=== PATIENT | female | born 1985 | race Hispanic/Latino ===

== ENCOUNTER 2017-11-28 13:57 | Observation (INO) | payer MEDICAID | END 2017-11-28 15:54 | disposition home or self-care (01) | LOC: LDH 13:57 | DX: O24.419 Gestational diabetes mellitus in pregnancy, unspecified control (principal); Z90.49 Acquired absence of other specified parts of digestive tract; Z87.59 Personal history of other complications of pregnancy, childbirth and the puerperium; Z3A.30 30 weeks gestation of pregnancy | CPT/HCPCS: 59025; 76819; G0378 ×3 ==

== ENCOUNTER 2017-12-19 05:43 | Inpatient (IN) | payer MEDICAID ==
[2017-12-18 17:14] LABS: HEMATOCRIT 33.6 % (36-48); MEAN CORPUSCULAR HEMOGLOBIN 33.8 pg (27.0-33.0); MEAN CORPUSCULAR VOLUME 96.4 fL (79-99); NUCLEATED RED BLOOD CELLS 0.1 % (0.0-0.19); PLATELET COUNT (AUTO) 259 K/uL (130-400); RED BLOOD CELL COUNT(AUTO) 3.49 MIL/uL (4.00-5.50); RED CELL DISTRIBUTION WIDTH 13.4 % (11.0-15.5)
[~2017-12-19] VITALS: Ht 157.5 cm; Wt 94.3 kg
[2017-12-19] MEDS ORDERED: LACTATED RINGERS 1000ML 1,000 ML IV SCH (06:00)
[2017-12-19] MEDS ORDERED: CEFAZOLIN SODIUM 1 GM VIAL IVP PRN (06:00)
[2017-12-19] MEDS ORDERED: CALDOLOR 800MG+NS 250ML 250 ML IV PRN (06:00)
[2017-12-19 06:12] LABS: AMPHET/METH SCREEN,URINE NEGATIVE (NEGATIVE); BARBITURATE SCREEN, URINE NEGATIVE (NEGATIVE); BENZODIAZEPINES SCREEN,URINE NEGATIVE (NEGATIVE); CANNABINOID SCREEN,URINE NEGATIVE (NEGATIVE); COCAINE SCREEN,URINE NEGATIVE (NEGATIVE); OPIATE SCREEN,URINE NEGATIVE (NEGATIVE); PHENCYCLIDINE SCREEN,URINE NEGATIVE (NEGATIVE)
[2017-12-19] MEDS ORDERED: DURAMORPH PF1 MG/ML 10ML AMP IV ONE (06:55)
[2017-12-19] MEDS ORDERED: SENSORCAINE/DEXT/PF 0.75% 2ML AMP IJ ONE ×2 (06:55→11:49)
[2017-12-19] MEDS ORDERED: OXYTOCIN 10 UNIT/1ML 10ML VIAL ONE (06:57)
[2017-12-19] MEDS ORDERED: PROMETHAZINE HCL 25 MG/ML 1ML AMPULE IM SCH (07:00)
[2017-12-19] MEDS ORDERED: MEPERIDINE-PF 25 MG/ML SYG IVP SCH (07:00)
[2017-12-19] MEDS ORDERED: OXYTOCIN 10 USP UNITS/ML ONE ×2 (07:08→14:36)
[2017-12-19] MEDS ORDERED: MIDAZOLAM HCL 1 MG/ML 2ML VIAL ONE (12:18)
[2017-12-19] MEDS ORDERED: ONDANSETRON HCL 4 MG/2 ML VIAL ONE ×2 (12:19→15:43)
[2017-12-19] MEDS ORDERED: METOCLOPRAMIDE 10 MG/2 ML VIAL ONE (12:20)
[2017-12-19] MEDS ORDERED: OXYTOCIN-LR 20 UNITS/1000 ML 1,000 ML IV PRN (12:48)
[2017-12-19] MEDS ORDERED: DIPHENHYDRAMINE HCL 25 MG CAPSULE PO PRN (13:00)
[2017-12-19] MEDS ORDERED: BISACODYL 10 MG SUPP.RECT RC PRN (13:00)
[2017-12-19] MEDS ORDERED: LANOLIN 30GM OINTMENT TP PRN (13:00)
[2017-12-19] MEDS ORDERED: DIPH,PERTUSS(ACELL),TET VAC/PF 0.5 ML VIAL IM SCH (13:00)
[2017-12-19] MEDS ORDERED: DEXTROSE 5 %-0.45 % NACL 1,000 ML IV PRN (13:00)
[2017-12-19] MEDS ORDERED: LACTATED RINGERS 1000ML 1,000 ML IV ONE (14:35)
[2017-12-19 14:58] VITALS: BP 129/94
[2017-12-19] MEDS ORDERED: MORPHINE SULFATE 2 MG/ML 1ML SYG IVP PRN (16:15)
[2017-12-19] MEDS ORDERED: PROMETHAZINE HCL 25 MG/ML 1ML AMPULE IM PRN (16:15)
[2017-12-19] MEDS ORDERED: ONDANSETRON HCL 4 MG/2 ML VIAL IVP PRN ×2 (16:15)
[2017-12-19] MEDS ORDERED: HYDROCODONE/ACETAMINOPHEN 5/325 MG TAB PO PRN ×2 (16:15)
[2017-12-19] MEDS ORDERED: ONDANSETRON HCL 4 MG/2 ML 8 MG in SODIUM CHLORIDE 0.9% 50 ML IVP NR (16:15)
[2017-12-19] MEDS ORDERED: DiphenhydrAMINE HCL 50 MG/ML VIAL IVP PRN (16:15)
[2017-12-19] MEDS ORDERED: NALOXONE HCL 0.4 MG/1 ML ML IVP PRN ×2 (16:15)
[2017-12-19] MEDS ORDERED: METOCLOPRAMIDE 10 MG/2 ML VIAL IVP PRN (16:15)
[2017-12-19] MEDS ORDERED: EPHEDRINE SULFATE 50 MG/ML AMPULE IVP PRN (16:15)
[2017-12-19] MEDS ORDERED: ONDANSETRON HCL MDV 20ML 2 MG/ML VIAL IVP PRN ×2 (16:15)
[2017-12-19 19:35] VITALS: BP 116/74
[2017-12-19] MEDS ORDERED: CEFAZOLIN 2GM / 50 ML 50 ML IV SCH (20:00)
[2017-12-19] MEDS: CEFAZOLIN SODIUM 1 GM VIAL IVP SCH (20:18)
[2017-12-19] MEDS: CALDOLOR 800MG+NS 250ML 250 ML IV SCH (21:33)
[2017-12-19] MEDS: DOCUSATE SODIUM 100 MG CAP PO SCH (21:33)
[2017-12-19] MEDS: SIMETHICONE 80 MG TAB.CHEW PO PRN (21:33)
[2017-12-19 23:33] VITALS: BP 127/71
[2017-12-20 04:00] VITALS: BP 114/68
[2017-12-20] MEDS: CALDOLOR 800MG+NS 250ML 250 ML IV SCH (05:01)
[2017-12-20] MEDS: CEFAZOLIN SODIUM 1 GM VIAL IVP SCH (05:02)
[2017-12-20 06:39] LABS: MEAN CORPUSCULAR HEMOGLOBIN 33.7 pg (27.0-33.0); MEAN CORPUSCULAR HGB CONC 34.6 g/dL (32.0-36.0); MEAN CORPUSCULAR VOLUME 97.3 fL (79-99); PLATELET COUNT (AUTO) 227 K/uL (130-400); RED BLOOD CELL COUNT(AUTO) 3.09 MIL/uL (4.00-5.50); RED CELL DISTRIBUTION WIDTH 13.4 % (11.0-15.5); WHITE BLOOD COUNT (AUTO) 9.8 K/uL (4.8-10.8)
[2017-12-20 07:32] VITALS: BP 106/58
[2017-12-20] MEDS: DOCUSATE SODIUM 100 MG CAP PO SCH ×2 (08:15→21:26)
[2017-12-20] MEDS: SIMETHICONE 80 MG TAB.CHEW PO PRN ×4 (08:15→21:26)
[2017-12-20] MEDS: ACETAMINOPHEN-CODEINE 300/30MG TAB PO PRN ×3 (08:17→19:47)
[2017-12-20 08:20] LABS: HEPATITIS Bs ANTIGEN SCREEN P Negative (Negative)
[2017-12-20 11:33] VITALS: BP 96/53
[2017-12-20] MEDS: IBUPROFEN 800 MG TAB PO SCH ×2 (13:41→21:26)
[2017-12-20 15:54] VITALS: BP 123/90
[2017-12-20 19:48] VITALS: BP 100/54
[2017-12-21 00:14] VITALS: BP 97/45
[2017-12-21 04:03] VITALS: BP 112/52
[2017-12-21] MEDS: IBUPROFEN 800 MG TAB PO SCH ×2 (05:59→12:48)
[2017-12-21 07:31] VITALS: BP 119/61
[2017-12-21] MEDS: SIMETHICONE 80 MG TAB.CHEW PO PRN ×2 (08:55→12:46)
[2017-12-21] MEDS: DOCUSATE SODIUM 100 MG CAP PO SCH (08:55)
[2017-12-21 11:45] VITALS: BP 134/78
[2017-12-21] MEDS: ACETAMINOPHEN-CODEINE 300/30MG TAB PO PRN (12:47)
[2017-12-21 15:31] VITALS: BP 122/79
== END 2017-12-21 15:35 | disposition home or self-care (01) | DRG 540 ==
LOC: LDH 05:43 → EDSTATUS 09:00 → WSH 14:35
PROC: 3E0234Z Introduction of Serum, Toxoid and Vaccine into Muscle, Percutaneous Approach (ICD-10-PCS; 2017-12-19)
PROC: 10D00Z1 Extraction of Products of Conception, Low, Open Approach (ICD-10-PCS; principal; 2017-12-19 11:50)
DX: O34.211 Maternal care for low transverse scar from previous cesarean delivery (principal); D62 Acute posthemorrhagic anemia; O90.81 Anemia of the puerperium; K66.0 Peritoneal adhesions (postprocedural) (postinfection); O99.62 Diseases of the digestive system complicating childbirth; Z37.0 Single live birth; Z3A.38 38 weeks gestation of pregnancy; Z23 Encounter for immunization
CPT/HCPCS: 36415; 59510; 80305; 85027; 86592; 86850; 86900; 86901; 87340; A4218; A4344; A4606; J0690; J1741; J2250; J2274; J2405; J2590; J2765; J3490; J7120

== ENCOUNTER 2022-03-25 17:05 | Emergency (ER) | payer MEDICAID, OTHER ==
[~2022-03-25] VITALS: Ht 157.5 cm; Wt 99.8 kg
[~2022-03-25 17:05] MED LIST: ACET-2079 PO; DOCU-116 PO; FERR325T29 PO; IBUP-2077 PO; PREN-154 PO
[2022-03-25 17:38] LABS: APPEARANCE,URINE SL CLOUDY (CLEAR); BILIRUBIN,URINE SMALL (NEGATIVE); COLOR,URINE YELLOW (YELLOW); GLUCOSE, URINE (UA) NEGATIVE (NEGATIVE); KETONES,URINE 15 mg/dL (NEGATIVE); LEUKOCYTE ESTERASE ,URINE NEGATIVE (NEGATIVE); NITRATE,URINE NEGATIVE (NEGATIVE); OCCULT BLOOD,URINE LARGE (NEGATIVE); PROTEIN,URINE TRACE mg/dL (NEGATIVE); UROBILINOGEN,URINE 0.2 mg/dL (0.2-1.0)
[2022-03-25 17:41] LABS: HCG,QUALITATIVE URINE POSITIVE (NEGATIVE)
[2022-03-25 17:43] LABS: BACTERIA,URINE Rare /HPF (None Seen); WBC,URINE 0-1 /HPF (0-1)
[2022-03-25 17:44] LABS: MUCUS,URINE Few LPF (None Seen); SQUAMOUS EPITHELIAL CELL,UR Few /HPF (0-2)
[2022-03-25 19:32] VITALS: BP 94/52
[2022-03-25 19:36] LABS: BASOPHILS % (AUTO) 0.5 % (0.0-5.0); HEMATOCRIT 32.9 % (36-48); LYMPHOCYTES % (AUTO) 29.8 % (21.0-51.0); MEAN CORPUSCULAR HEMOGLOBIN 28.6 pg (27.0-33.0); MEAN CORPUSCULAR HGB CONC 32.2 g/dL (32.0-36.0); MEAN CORPUSCULAR VOLUME 88.9 fL (79-99); MONOCYTES % (AUTO) 7.9 % (3.0-13.0); NEUTROPHILS % (AUTO) 60.6 % (40.0-77.0); PLATELET COUNT (AUTO) 249 K/uL (130-400); RED CELL DISTRIBUTION WIDTH 16.7 % (11.0-15.5); WHITE BLOOD COUNT (AUTO) 8.1 K/uL (4.8-10.8)
[2022-03-25 19:45] LABS: CREATININE 0.5 mg/dL (0.5-1.5); POTASSIUM 3.6 mmol/L (3.5-5.1)
[2022-03-25] MEDS ORDERED: PNV1TABL17 PO (20:12)
== END 2022-03-25 20:28 | disposition home or self-care (01) ==
LOC: EDH 17:05
DX: O20.0 Threatened abortion (principal); Z79.1 Long term (current) use of non-steroidal anti-inflammatories (NSAID); Z3A.10 10 weeks gestation of pregnancy
CPT/HCPCS: 36415; 76801; 80053; 81001; 81025; 83690; 84702; 85025; 86900; 86901

== ENCOUNTER 2024-08-20 13:59 | Emergency (ER) | payer MEDICAID, OTHER ==
[~2024-08-20] VITALS: Ht 160 cm; Wt 108.9 kg
[~2024-08-20 13:59] MED LIST changes: +PNV1TABL17 PO
[2024-08-20 15:02] LABS: BASOPHILS # (AUTO) 0.04 K/uL (0.00-0.20); BASOPHILS % (AUTO) 0.5 % (0.0-5.0); EOSINOPHILS # (AUTO) 0.06 K/uL (0.00-0.70); EOSINOPHILS % (AUTO) 0.7 % (0.0-8.0); HEMATOCRIT 40.1 % (36-48); IMMATURE GRANULOCYTE ABSOLUTE 0.04 K/uL (0-1); LYMPHOCYTES # (AUTO) 2.6 K/uL (1.0-4.8); MEAN CORPUSCULAR HGB CONC 32.7 g/dL (32.0-36.0); MONOCYTES # (AUTO) 0.5 K/uL (0.1-1.0); MONOCYTES % (AUTO) 6.2 % (3.0-13.0); NEUTROPHILS # (AUTO) 5.1 K/uL (1.8-7.7); NEUTROPHILS % (AUTO) 61.1 % (40.0-77.0); PLATELET COUNT (AUTO) 261 K/uL (130-400); RED BLOOD CELL COUNT(AUTO) 4.09 MIL/uL (4.00-5.50); RED CELL DISTRIBUTION WIDTH 12.4 % (11.0-15.5); WHITE BLOOD COUNT (AUTO) 8.4 K/uL (4.8-10.8)
--- NOTE | 2024-08-20 15:05 | ERN ---
General Chief Complaint: Back Pain or Injury Stated Complaint: BACK PAIN Time Seen by MD: 14:00 Time Seen by Midlevel: 14:00 Source: patient History of Present Illness Initial Comments Patient is a 39-year-old female with no significant past medical history presenting to the emergency department with bilateral upper/mid back pain that started two days ago. Patient states she was on the floor sitting down playing with her children's were two and 3 years old when the pain started. Initially she believes her back pain was because of the way she was sitting down but over the last two days her symptoms have worsened. The back pain worsens with movement. She denies any dysuria, hematuria, nausea, vomiting, fever, chills or any other symptoms at this time. She does report that when she takes a deep breath her back pain is reproducible. Allergies: Coded Allergies: No Known Drug Allergies (Unverified Allergy, Unknown, 12/19/17) Home Meds Active Scripts Pnv Cmb#21/Iron/Folic Acid ( Complete Caplet) 1 Each Tablet, 1 EACH PO DAILY, #30 TAB Prov:KIARA ALVAREZ [employer] 03/25/22 Reported Medications Acetaminophen with Codeine (Acetaminophen-Cod #3 Tablet) 1 Each Tablet, 1 EACH PO Q4HPRN PRN for PAIN LEVEL 7 TO 10, TAB 09/26/21 Docusate Sodium (Colace) 100 Mg Capsule, 100 MG PO BID, CAP 09/26/21 Ibuprofen (Ibuprofen 800 mg Tab) 800 Mg Tab, 800 MG PO Q6H PRN for PAIN, TAB 09/26/21 Ferrous Sulfate (Ferosul) 325 Mg Tablet, 325 MG PO AMNOON, TAB 09/24/21 Vits #93/Iron Fum/FA ( Formula Tablet) 1 Each Tablet, 1 EACH PO AMNOON, TAB 09/24/21 Past Medical History Past Medical History: No Pertinent History Past Surgical History: Unknown Female( History) : 5 Para: 4 ROS Dictation CONSTITUTIONAL: Negative except for HPI HEAD/FACE: Negative except for HPI EENT: Negative except for HPI RESPIRATORY: Negative except for HPI GASTROINTESTINAL/ABDOMINAL: Negative except for HPI GENITOURINARY: Negative except for HPI MUSCULOSKELETAL: Negative except for HPI INTEGUMENTARY: Negative except for HPI NEUROLOGICAL/PSYCH: Negative except for HPI HEMATOLOGIC/LYMPHATIC: Negative except for HPI All Systems Negative, Except as noted above. 13 point review of systems assessed and all negative except for above. Physical Exam Physical Exam Dictation Vital Signs reviewed General Appearance: Alert, oriented x 3, no acute distress, well developed, nourished. Head and Face: non-traumatic. Eyes: PERRL, pink conjunctivas, eyelid no trauma, anterior chamber with arcus senilis. Ears: Pinnas intact and no signs of trauma or erythema ear canals clear and no discharge TM no erythema Nose: No discharge, no bleeding. Oropharynx: Mouth normal, tongue pink, pharynx clear,no erythema, tonsils no exudates, no abscesses noted, mucous membrane moist Neck: Supple, non-tender, no thyromegaly, no masses, no JVD, no bruits Breast:Deferred Chest:No tenderness, no crepitus, no paradoxical movement, no retractions Lungs:Clear, well-ventilated, symmetric, no rales, no wheezing, no rhonchi, no stridor, good breath sounds bilaterally Heart: Regular rate, regular rhythm, no murmur, no gallops Vascular: no peripheral edema, Abdomen: Soft, positive bowel sounds, nondistended, no guarding, nontender, no rebound, no masses no hepatomegaly, no splenomegaly, no Sparks's sign, no hernias. Rectal: Deferred Genital: Deferred Neurological: Normal speech, motor function intact, sensory function intact Musculoskeletal: Neck nontender, full range of motion, back nontender, full range of motion, Extremities: nontender, full range of motion Skin: Color pink, dry, no turgor, no rash, no lacerations, no abrasions, no contusions. Lymphatic: Deferred Results Laboratory and Microbiology Lab and Micro Result Laboratory Tests Test 08/20/24 14:46 08/20/24 15:42 White Blood Count 8.4 K/uL (4.8-10.8) Red Blood Count 4.09 MIL/uL (4.00-5.50) Hemoglobin 13.1 g/dL (12.0-16.0) Hematocrit 40.1 % (36-48) Mean Corpuscular Volume 98.0 fL (79-99) Mean Corpuscular Hemoglobin 32.0 pg (27.0-33.0) Mean Corpuscular Hemoglobin Concent 32.7 g/dL (32.0-36.0) Red Cell Distribution Width 12.4 % (11.0-15.5) Platelet Count 261 K/uL (130-400) Mean Platelet Volume 9.7 fL (7.5-10.5) Immature Granulocyte % (Auto) 0.5 % (0-1) Neutrophils (%) (Auto) 61.1 % (40.0-77.0) Lymphocytes (%) (Auto) 31.0 % (21.0-51.0) Monocytes (%) (Auto) 6.2 % (3.0-13.0) Eosinophils (%) (Auto) 0.7 % (0.0-8.0) Basophils (%) (Auto) 0.5 % (0.0-5.0) Neutrophils # (Auto) 5.1 K/uL (1.8-7.7) Lymphocytes # (Auto) 2.6 K/uL (1.0-4.8) Monocytes # (Auto) 0.5 K/uL (0.1-1.0) Eosinophils # (Auto) 0.06 K/uL (0.00-0.70) Basophils # (Auto) 0.04 K/uL (0.00-0.20) Absolute Immature Granulocyte (auto 0.04 K/uL (0-1) Nucleated Red Blood Cells 0.0 % (0.0-0.19) Sodium Level 140 mmol/L (136-145) Potassium Level 3.8 mmol/L (3.5-5.1) Chloride Level 102 mmol/L (101-111) Carbon Dioxide Level 32 mmol/L (21-32) Blood Urea Nitrogen 13 mg/dL (7-18) Creatinine 0.5 mg/dL (0.5-1.0) Glomerular Filtration Rate Calc 124 mL/min (>90) Random Glucose 142 mg/dL (70-105) H Total Calcium 9.4 mg/dL (8.5-10.1) Serum Test, Qualitative NEGATIVE (NEGATIVE) Urine Color LIGHT-YELLOW (YELLOW) Urine Appearance CLEAR (CLEAR) Urine pH 6.0 (5.0-8.0) Urine Specific [place]well 1.026 (1.001-1.031) Urine Protein NEGATIVE mg/dL (NEGATIVE) Urine Glucose (UA) NEGATIVE mg/dL (NEGATIVE) Urine Ketones NEGATIVE mg/dL (NEGATIVE) Urine Occult Blood MODERATE (NEGATIVE) H Urine Nitrate NEGATIVE (NEGATIVE) Urine Bilirubin NEGATIVE mg/dL (NEGATIVE) Urine Urobilinogen 0.2 mg/dL (0.2-1.0) Urine Leukocyte Esterase NEGATIVE Dayana/uL Urine RBC 11-25 /HPF (0-1) H Urine WBC 2-5 /HPF (0-1) H Urine Squamous Epithelial Cells FEW /HPF (0-2) Urine Bacteria None /HPF (None Seen) Labs Reviewed?: Yes MDM MDM: Patient is a 39-year-old female with no significant past medical history presenting to the emergency department with bilateral upper/mid back pain that started two days ago. Patient states she was on the floor sitting down playing with her children's were two and 3 years old when the pain started. Initially she believes her back pain was because of the way she was sitting down but over the last two days her symptoms have worsened. The back pain worsens with movement. She denies any dysuria, hematuria, nausea, vomiting, fever, chills or any other symptoms at this time. She does report that when she takes a deep breath her back pain is reproducible. On physical examination patient is in no acute respiratory distress. Her vital signs are stable. Patient is afebrile and nontoxic appearing. She does have some mild paraspinal muscle tenderness to the mid back. Her CBC does not show any leukocytosis. Her chemistries are stable. Her kidney function is normal. Your chest x-ray does not show any acute abnormality. Her urinalysis does show moderate amount of occult blood with positive RBCs. This is concerning for a possible kidney stone given her PET back pain. A CT scan of the abdomen and pelvis without contrast was obtained which does not show any acute abnormality. There was no evidence for pyelonephritis, ureter stone, or hydronephrosis. The patient will be discharged home as her symptoms are most likely musculoskeletal in nature. She was advised to follow up with your primary care doctor in 2-3 days for repeat evaluation or return to the ER for any new or worsening symptoms Differential diagnosis: Urinary tract infection, pyelonephritis, renal stone, hydronephrosis, musculoskeletal pain, back strain There are no social concerns with this patient. Prescription drug management Prescriptions will include: Tylenol Motrin Medical management and examination interpretation discussions were had by me with other qualified healthcare professionals as indicated for the patient's care. ED Course Orders Procedure Category Date Status Time Cbc With Differential LAB 08/20/24 Complete 14:20 Basic Metabolic Panel LAB 08/20/24 Complete 14:20 Urinalysis Profile LAB 08/20/24 Complete 14:20 Testing, LAB 08/20/24 Complete Serum Hcg 14:20 Chest 1vw RAD 08/20/24 Resulted 14:20 Ct Abdomen/Pelvis W/O CT 08/20/24 Resulted Contrast 16:18 Vital Signs Date Time Temp Pulse Resp B/P (MAP) Pulse Ox O2 Delivery O2 Flow Rate FiO2 08/20/24 16:11 99.0 74 18 128/68 100 Room Air* 0 21 08/20/24 14:16 98.2 67 16 120/69 98 Room Air 0 08/20/24 14:16 98.2 67 16 120/69 100 Room Air* 0 21 [place] [address] [place] [id number] IMAGING REPORT Signed PATIENT: KATHY ELIAS MR#: [id number] : 1985 SEX: F AGE: 39 LOCATION: [facility] ORDER STATUS: REG ER REPORT#: [id number] SERVICE REASON: hematura r/o kidney stone/hydronephrosis ORDERING PHYSICIAN: MANDA FISH PROCEDURE: ABD PEL WO - CT ABDOMEN/PELVIS W/O CONTRAST CT ABDOMEN/PELVIS W/O CONTRAST HISTORY: Hematuria COMPARISON: None TECHNIQUE: Multiple sequential axial images of the abdomen and pelvis were obtained from the dome of the diaphragm through symphysis pubis. Patient was not given contrast through intravenous route. Oral contrast was not given. FINDINGS: No pleural effusion is seen bilaterally. There is no evidence of parenchymal disease or pulmonary nodule of the visualized lower lungs. Degenerative changes of the thoracolumbar spine are present. The heart is not enlarged. Liver is enlarged with fatty changes measuring 26 cm. Postcholecystectomy changes are seen. The liver, spleen, adrenal glands and pancreas are unremarkable. There is no evidence of hydronephrosis bilaterally. No evidence of renal stone is seen. Fecal material is seen in the colon. There are normal size retroperitoneal and mesenteric lymph nodes. No ascites is seen. Atherosclerotic changes are present. Pelvic sidewalls are symmetric bilaterally. Bladder is poorly distended. IMPRESSION: 1. Fecal material is seen in the colon. No ascites is seen. No hydronephrosis is seen. CT was performed with one or more following dose reduction techniques: automated exposure control, adjustment of the mA and kv according to patient's size, or use of a iterative reconstruction technique. DICTATED BY: KRISTAN MONTE MD DATE: 08/20/241718 ELECTRONICALLY SIGNED BY: KRISTAN MONTE MD DATE: 08/20/241725 [place] [id number] [id number] IMAGING REPORT Signed PATIENT: KATHY ELIAS MR#: [id number] : 1985 SEX: F AGE: 39 LOCATION: [facility] ORDER 20 STATUS: [facility] REPORT#: [id number] SERVICE 19 REASON: sob ORDERING PHYSICIAN: MANDA FISH PROCEDURE: CXR1VW - CHEST 1VW CHEST 1VW HISTORY: Shortness of breath COMPARISON: None FINDINGS: A frontal projection of the chest was obtained. No acute pulmonary infiltrates is seen. The heart is normal in size. Prominent interstitial markings are seen. No evidence of aortic calcification is seen. IMPRESSION: 1. No acute pulmonary infiltrate is seen. DICTATED BY: KRISTAN MONTE MD DATE: 08/20/24 1534 ELECTRONICALLY SIGNED BY: KRISTAN MONTE MD DATE: 08/20/24 1607 DX & DISP Disposition: Discharge Departure Impression: Primary Impression: Muscle strain of upper back Condition: Stable Additional Instructions: Your blood work today is unremarkable. Your kidney function is normal. Your urinalysis showed blood which was concerning for a possible kidney stone. A CT scan was performed of the abdomen/pelvis which does not reveal any intra- abdominal abnormality. Your symptoms are most likely musculoskeletal in nature. Please follow up with your primary care doctor in 2-3 days for repeat evaluation. Return to the ER if you develop any new or worsening symptoms Referrals: ZORA DUQUE PA-C (PCP) Time of Disposition: 17:34 I have reviewed the case, and I agree with, Diagnosis and Plan I performed the substantive portion of the visit. I have reviewed and pers onally made and approve the management plan that is documented in the note by myself or the GALDINO. I acknowledge for responsibility for the patient's management plan. MANDA FISH Aug 20, 2024 15:05
[2024-08-20 15:21] LABS: CREATININE 0.5 mg/dL (0.5-1.0); POTASSIUM 3.8 mmol/L (3.5-5.1)
--- NOTE | 2024-08-20 15:37 | HMCIMG ---
CHEST 1VW HISTORY: Shortness of breath COMPARISON: None FINDINGS: A frontal projection of the chest was obtained. No acute pulmonary infiltrates is seen. The heart is normal in size. Prominent interstitial markings are seen. No evidence of aortic calcification is seen. IMPRESSION: 1. No acute pulmonary infiltrate is seen.
[2024-08-20 15:51] LABS: APPEARANCE,URINE CLEAR (CLEAR); BILIRUBIN,URINE NEGATIVE (NEGATIVE); COLOR,URINE LIGHT-YELLOW (YELLOW); GLUCOSE, URINE (UA) NEGATIVE (NEGATIVE); KETONES,URINE NEGATIVE (NEGATIVE); LEUKOCYTE ESTERASE ,URINE NEGATIVE Leu/uL (NEGATIVE); NITRATE,URINE NEGATIVE (NEGATIVE); OCCULT BLOOD,URINE MODERATE (NEGATIVE); PROTEIN,URINE NEGATIVE (NEGATIVE); UROBILINOGEN,URINE 0.2 mg/dL (0.2-1.0)
[2024-08-20 15:52] LABS: ADD UA MICROSCOPIC YES
[2024-08-20 15:54] LABS: MUCUS,URINE RARE LPF (None Seen); SQUAMOUS EPITHELIAL CELL,UR FEW /HPF (0-2)
--- NOTE | 2024-08-20 17:26 | HMCIMG ---
CT ABDOMEN/PELVIS W/O CONTRAST HISTORY: Hematuria COMPARISON: None TECHNIQUE: Multiple sequential axial images of the abdomen and pelvis were obtained from the dome of the diaphragm through symphysis pubis. Patient was not given contrast through intravenous route. Oral contrast was not given. FINDINGS: No pleural effusion is seen bilaterally. There is no evidence of parenchymal disease or pulmonary nodule of the visualized lower lungs. Degenerative changes of the thoracolumbar spine are present. The heart is not enlarged. Liver is enlarged with fatty changes measuring 26 cm. Postcholecystectomy changes are seen. The liver, spleen, adrenal glands and pancreas are unremarkable. There is no evidence of hydronephrosis bilaterally. No evidence of renal stone is seen. Fecal material is seen in the colon. There are normal size retroperitoneal and mesenteric lymph nodes. No ascites is seen. Atherosclerotic changes are present. Pelvic sidewalls are symmetric bilaterally. Bladder is poorly distended. IMPRESSION: 1. Fecal material is seen in the colon. No ascites is seen. No hydronephrosis is seen. CT was performed with one or more following dose reduction techniques: automated exposure control, adjustment of the mA and kv according to patient's size, or use of a iterative reconstruction technique.
[2024-08-20 17:46] VITALS: BP 123/65; PULSE 70; RESP 17; TEMP 98.9; O2SAT 100
== END 2024-08-20 17:46 | disposition home or self-care (01) ==
LOC: EDH 13:59
DX: S29.012A Strain of muscle and tendon of back wall of thorax, initial encounter (principal); Z79.899 Other long term (current) drug therapy; X58.XXXA Exposure to other specified factors, initial encounter; Y93.89 Activity, other specified; Y92.89 Other specified places as the place of occurrence of the external cause; Y99.8 Other external cause status
CPT/HCPCS: 36415; 71045; 74176; 80048; 81001; 84703; 85025; 99284